=== PATIENT | female | born 1945 | race Caucasian/White ===

== ENCOUNTER 2018-05-01 12:38 | Emergency (ER) | payer MEDICARE ==
[2018-05-01] MEDS ORDERED: Tetan/Diph/Pertus SYR(Tdap)* 0.5 ML SYR(BOOSTRIX) use SYR IM ONE (13:45)
--- NOTE | 2018-05-01 14:11 | ED ---
Upper Extremity Pain - HPI Summary HPI Summary: Patient presents with foreign body in her left index finger prior to arrival. She was using her sewing machine when her finger got stuck in the line of fire, struck by the needle and as she went to pull it out the needle broke off in her finger. She denies numbness, tingling, weakness. She is not up-to-date with her tetanus. She believes part of the needle is still stuck in her finger. Does not want anything for pain at this time. - History of Current Complaint Chief Complaint: EDExtremityUpper Stated Complaint: NEEDLE IN LT INDEX FINGER Hx Obtained From: Patient - Allergies/Home Medications Allergies/Adverse Reactions: Allergies Allergy/AdvReac Type Severity Reaction Status Date / Time No Known Allergies Allergy Verified 05/01/18 13:04 Home Medications: Home Medications Multivitamin [Multiple Vitamins] 1 tab PO DAILY 05/01/18 [History Confirmed ] PMH/Surg Hx/FS Hx/Imm Hx Previously Healthy: Yes Endocrine/Hematology History: Reports: Hx Diabetes - ON MEDS Denies: Hx Anticoagulant Therapy, Hx Blood Disorders Cardiovascular History: Denies: Hx Hypertension, Hx Pacemaker/ICD History: Denies: Hx Renal Disease Sensory History: Denies: Hx Hearing Aid Psychiatric History: Denies: Hx Panic Disorder - Cancer History Hx Chemotherapy: No Hx Radiation Therapy: No - Surgical History Surgery Procedure, Year, and Place: GALLBLADDER 2005. FATTY TISSUE WRAPPED AROUND COLON 1994. HYSTERECTOMY 1985. LEFT FOOT SCRAPPED BONE AND REMOVED THE NERVE FROM ONE TOE 2009 - Immunization History Date of Tetanus Vaccine: 2014 Infectious Disease History: No Infectious Disease History: Denies: Traveled Outside the [place] in Last 30 Days - Social History Alcohol Use: Occasionally Hx Substance Use: No Substance Use Type: Reports: None Hx Tobacco Use: No Smoking Status (MU): Never Smoked Tobacco Review of Systems Positive: no symptoms reported Positive: Myalgia. Negative: Arthralgia, Decreased ROM Skin: Other - puncture wound Neurological: Negative Psychological: Normal All Other Systems Reviewed And Are Negative: Yes Physical Exam Triage Information Reviewed: Yes Vital Signs On Initial Exam: Initial Vitals Temp Pulse Resp BP Pulse Ox 98.4 F 80 14 167/45 97 05/01/18 13:01 05/01/18 13:01 05/01/18 13:01 05/01/18 13:01 05/01/18 13:01 Vital Signs Reviewed: Yes Appearance: Positive: Well-Appearing, No Pain Distress, Obese Skin: Positive: Warm, Skin Color Reflects Adequate Perfusion, Dry - no active bleeding... Musculoskeletal: Positive: Normal, Strength/ROM Intact Neurological: Positive: Normal, Sensory/Motor Intact, Alert, Oriented to Person Place, Time Psychiatric: Positive: Normal Procedures - Procedure Summary Procedure Summary: Procedure performed by KARLA Siddiqui and supervised by Monica Miles PA-C FB removal Lt index finger Digital block performed w/ 1% lidocaine and bicarb Finger cleaned w/ iodine Small incision made over palmar aspect of needle and needle identified however unable to remove from this aspect - was pulled out of finger from nail aspect w/ o difficulty - metal needle tip w/ eye about 8mm in length and appears to be intact Soaked in hibaclens and water solution Dressing placed Pt tolerated well Diagnostics - Vital Signs Vital Signs Temp Pulse Resp BP Pulse Ox 05/01/18 13:56 98.6 F 80 178/65 97 05/01/18 13:50 75 95 05/01/18 13:48 79 196/72 96 05/01/18 13:01 98.4 F 80 14 167/45 97 - Laboratory Lab Statement: Any lab studies that have been ordered have been reviewed, and results considered in the medical decision making process. Course/Dx - Course Course Of Treatment: 8mm x 1.3mm metalic object identified in soft tissue of distal tip of Lt index finger. After conversation with pt about removal technique, she agrees and this was performed by KARLA Siddiqui while supervised by Monica Miles PA-C. - Diagnoses Provider Diagnoses: Foreign body of left index finger Discharge - Sign-Out/Discharge Documenting (check all that apply): Patient Departure - Discharge Plan Condition: Stable Disposition: HOME Prescriptions: Cephalexin CAP* [Keflex CAP*] 500 mg PO BID #10 cap Patient Education Materials: Puncture Wound (ED) Referrals: Kulwant Quispe MD [Primary Care Provider] - Additional Instructions: Soak 2 x day in warm soapy soaks then rinse well and pat dry then redress with bandaid. Rest, ice, elevate and take ibuprofen with food as needed for pain Complete antibiotics as directed If you develop redness, swelling, streaking, purulent drainage or fever/chills, return to ED - Billing Disposition and Condition Condition: STABLE Disposition: Home
--- NOTE | 2018-05-01 14:27 | RAD ---
INDICATION: Needle broke off in tip of the left index finger. TECHNIQUE: 3 views of the left index finger were obtained. FINDINGS: There is a metallic foreign body present in the soft tissues at the tip of the finger located adjacent to the tuft of the distal phalanx. The metallic foreign body measures 8 mm in length by 1.3 mm in diameter. No discrete fracture is seen. IMPRESSION: FOREIGN BODY IN THE TIP OF THE FINGER.
[2018-05-01] MEDS ORDERED: Sodium Bicarbonate 8.4% SYR* 10 ML SYRINGE IV ONE (14:31)
[2018-05-01 16:22] VITALS: BP 139/81
== END 2018-05-01 16:21 | disposition home or self-care (01) ==
LOC: ED 12:38
DX: S61.241A Puncture wound with foreign body of left index finger without damage to nail, initial encounter (principal); Y93.D2 Activity, sewing; Y92.9 Unspecified place or not applicable; E11.9 Type 2 diabetes mellitus without complications; Z79.899 Other long term (current) drug therapy; Z23 Encounter for immunization
CPT/HCPCS: 10120; 73140; 90471; 90715; 99283